=== PATIENT | female | born 1985 | race Caucasian/White ===

== ENCOUNTER 2018-06-19 11:10 | Inpatient (IN) | payer SELFPAY ==
[2018-06-19 12:47] LABS: BHCG - Serum Negative (NEGATIVE); Pregs Control Background? CLEAR/WHITE (CLR/WHITE); Pregs Control Bar Appear? YES (CONTROL BAR)
[2018-06-19] MEDS ORDERED: Morphine 2 MG/ML SYRINGE ONE (13:10)
[2018-06-19] MEDS ORDERED: Magnesium 2 GM/50 ML BAG (IN WATER) ONE (13:10)
[2018-06-19 13:29] LABS: Base Excess-Venous -1.8 mmol/L (0 (+/- 2.5)); Bicarbonate (HCO3v) 20.8 mmol/L (1.0-85.0); CO2 Tension (PvCO2) 28.8 mmHg (41.0-51.0); Calcium, Ionized 1.01 mmol/L (1.12-1.32); Hemoglobin - Calc 13.9 g/dL (12.0-18.0); O2 Tension (PvO2) 104.3 mmHg (35.0-45.0); Potassium 2.8 mmol/L (3.4-4.7); T. Carbon Dioxide 21.6 mmol/L (1.0-85.0); pH (Venous) 7.465 (7.35-7.45); vO2 Saturation-calc 98.4 % (94-98)
[2018-06-19 14:14] LABS: INR-International Normal Ratio 1.7; PTT 35.5 SEC (22.9-36.1)
[2018-06-19 14:17] LABS: HBCM Index 0.05 S/CO (0-0.79); HBSAg Index 0.26 S/CO (0-0.99); Hep A IgM AB Non-Reactive (NonReactive); Hep B Surf Ag Non-Reactive S/CO (NonReactive); Hep C IgG Ab Non-Reactive (NonReactive); Hep C Index 0.06 S/CO (0-0.79); Hepatitis B Core IgM Abs Non-Reactive (NonReactive)
[2018-06-19] MEDS ORDERED: Promethazine HCl 25 MG/ML VIAL IM/IV PRN (14:21)
[2018-06-19] MEDS ORDERED: NS 0.9% w/ 40 MEQ KCL 1,000 ML IV SCH (14:30)
[2018-06-19] MEDS ORDERED: Potassium Chloride 20 MEQ TAB ONE (15:13)
--- NOTE | 2018-06-19 16:03 | HP ---
PRIMARY CARE PROVIDER: Mi Oliver PA-C CHIEF COMPLAINT: Abdominal pain. HISTORY OF PRESENT ILLNESS: Ms. Shaffer is a pleasant 32-year-old lady who was seen at [facility] on 06/19/2018. She reports that 2 days ago she developed pain across her upper abdomen, at times constant, but also at times on and off, it appears that she had more than one type of pain. She describes the pain as s harp, but also cramping like sensation, 10/10 at its worst, no known aggravating or relieving factors . Yesterday morning, she started having nausea and vomiting. She reports vomiting multiple times du ring the day, every time she tried to drink some water. She denies any diarrhea. She denies any josh st pain or shortness of breath. She reports generalized weakness. She came to the emergency room because of ongoing abdominal pain. REVIEW OF SYSTEMS: All other systems reviewed and found to be negative. PAST MEDICAL HISTORY: Hypertension and migraines. PAST SURGICAL HISTORY: Cautery for what appears to be a nose polyp, tubal ligation and sect ion x3. PSYCHIATRIC HISTORY: Bipolar disorder. SOCIAL HISTORY: The patient reports smoking half a pack of cigarettes a day. She also reports drink ing 6 beers every day. FAMILY HISTORY: Heart disease in both her maternal grandparents. ALLERGIES: PENICILLIN. CURRENT MEDICATIONS: None. PHYSICAL EXAMINATION: GENERAL: Ms. Shaffer is awake and alert, not in acute distress. VITAL SIGNS: Blood pressure is 119/85, pulse 100, respiratory rate 18, and oxygen saturation 99% on room air. She is afebrile. EYES: She has scleral icterus. No conjunctival pallor. ENT: Dry mucosal membranes, no oropharyngeal erythema or exudates. NECK: Supple, nontender, trachea is midline. RESPIRATORY: Accessory muscles of breathing are not active. Chest wall movements are symmetric bila terally. LUNGS: Clear to auscultation without wheeze, rhonchi or crepitations. CARDIOVASCULAR: S1 and S2 are heard, tachycardic and regular. Peripheral pulses palpable. No carot id bruit, no pericardial rub. ABDOMEN: Epigastrium is tender. Right upper quadrant is tender as well. I could not assess for Mur phy's sign because of the degree of tenderness in the right upper quadrant. There is no guarding or rigidity. Bowel sounds are heard. NEUROLOGIC: Cranial nerves II-XII intact, deep tendon reflexes are 2+. MUSCULOSKELETAL: Power is 5/5 in all 4 extremities. SKIN: No rashes or subcutaneous nodules. LYMPHATIC: No cervical lymphadenopathy. PSYCHIATRIC: Normal mood, normal affect, patient is oriented to person, place, and time. LABORATORY DATA: Ms. Powers labs and investigations were reviewed. She has leukocytosis with 16,800 white cells, of which 92% are neutrophils, elevated hemoglobin of 17.3, normal platelet count, milton l sodium, decreased potassium of 2.8, normal creatinine, elevated lactic acid level of 5.7, decreased magnesium of 1.4, elevated total bilirubin of 1.9, elevated AST of 10,738, elevated ALT of 1228, mateo vated alkaline phosphatase of 253, elevated lipase of 160 and negative serum test. Acute h epatitis serology is negative. Acetaminophen level is in the normal range at 11. She had CT scan of the abdomen and pelvis, which showed diffuse fatty infiltration of the liver, slightly increased hep atic size, normal splenic size, streaking around the pancreas with slight enlargement of the pancreat ic head, small amount of fluid near the head, suspicious for acute pancreatitis and fluid in nondilat ed loops of small bowel, probably reactive to the above problems and large gallbladder without eviden ce of stones or wall thickening. ASSESSMENT AND PLAN: Ms. Powers is a pleasant 32-year-old lady who was seen at [facility] on 06/19/2018. Her problem list includes: 1. Acute hepatitis: The etiology is unclear, could be related to daily alcohol abuse. She does hav e acetaminophen in her blood and reports taking Midol with acetaminophen because of abdominal cramps. She reports taking multiple doses. We will contact [facility] to see if they have any f urther recommendations. We will continue intravenous fluids. We will recheck LFTs. Gastroenterolog y service is also being consulted. 2. Acute pancreatitis: Continue IV fluids, continue pain medications, recheck lipase level. 3. Tobacco abuse: Patient has been counseled regarding tobacco cessation. We will start her on elisa otine replacement therapy. 4. The patient has been started on empiric antibiotics. I will continue her on fluoroquinolones and metronidazole until the picture is clearer. Many thanks for allowing me to participate in your patient's care. Please feel free to contact me wi th any questions or concerns. LEVEL OF RISK: Moderate. LEVEL OF COMPLEXITY: Moderate.
[2018-06-19] MEDS ORDERED: ACETYLCYSTEINE IVPB ONE ×3 (16:15→22:00)
[2018-06-19] MEDS ORDERED: WATER IVPB ONE ×3 (16:15→22:00)
[2018-06-19] MEDS ORDERED: DEXTROSE 5% IVPB ONE ×3 (16:15→22:00)
[2018-06-19 16:51] VITALS: BMI 20.5
[2018-06-19] MEDS ORDERED: diphenhydrAMINE 25 MG CAP PO PRN (17:02)
[2018-06-19] MEDS ORDERED: diphenhydrAMINE 50 MG/ML VIAL IVP PRN ×2 (17:02)
[2018-06-19] MEDS ORDERED: diphenhydrAMINE 50 MG CAP PO PRN (17:02)
[2018-06-19] MEDS ORDERED: Ondansetron PF 4 MG/2 ML Vial SLOW IVP PRN (17:07)
[2018-06-19 17:52] LABS: Amphetamine Not Detected (NotDetected); Barbiturates Screen Not Detected (NotDetected); Benzodiazepine Screen Detected (NotDetected); Cocaine Metabolite Screen Not Detected (NotDetected); Medtox Control Line Valid? VALID (VALID); Medtox Reader # READER 4; Methadone Not Detected (NotDetected); Methamphetamine Not Detected (NotDetected); Opiate Screen Detected (NotDetected); Oxycodone Screen Not Detected (NotDetected); Phencyclidine (PCP) Not Detected (NotDetected); THC/Cannabinoid Screen Not Detected (NotDetected); Tricyclic Screen Not Detected (NotDetected)
[2018-06-19] MEDS: Morphine 2 MG/ML SYRINGE SLOW IVP PRN (18:23)
[2018-06-19] MEDS ORDERED: Lactated Ringer's 1,000 ML IV SCH (20:15)
[2018-06-19 20:21] LABS: ALT (SGPT) 1013 U/L (8-55); Alkaline Phosphatase 150 U/L (40-150); Anion Gap 15 mmol/L (10-20); BUN (Urea Nitrogen) Less than 4 mg/dL (7.0-18.7); Bilirubin, Total 1.2 mg/dL (0.2-1.2); Calc. Creatinine Clearance 111 mL/min (70-130); Calcium 7.9 mg/dL (7.8-10.44); Carbon Dioxide 22 mmol/L (22-29); Chloride 103 mmol/L (98-107); Estimated GFR-MDRD Greater than 90; Globulin 2.8 g/dL (2.4-3.5); Glucose 106 mg/dL (70-105); Lipase 110 U/L (8-78); Protein, Total 5.8 g/dL (6.0-8.3); Sodium 137 mmol/L (136-145)
[2018-06-19 20:22] LABS: AST (SGOT) Greater than 3500 U/L (5-34)
[2018-06-19 20:24] LABS: Potassium 2.9 mmol/L (3.5-5.1)
[2018-06-19] MEDS: Multivitamins, Adult 10 ML, Folic Acid 1 MG, Thiamine HCl 100 MG in Dextrose 5 %-0.45 %... IV SCH (20:28)
[2018-06-19 20:29] LABS: INR-International Normal Ratio 1.5; Prothrombin Time 18.4 SEC (12.0-14.7)
[2018-06-19 20:33] LABS: Band 7 % (5-11); Hemoglobin 12.2 g/dL (12.0-16.0); Lymphocytes 15 % (21-51); MDiff Complete? YES; Mean Corpuscular HGB CONC 32.9 g/dL (32.0-36.0); Mean Corpuscular Hemoglobin 32.1 pg (27.0-31.0); Mean Corpuscular Volume 97.6 fL (78.0-98.0); Mean Platelet Volume 8.4 fL (7.4-10.4); Monocytes 3 % (0-10); Neutrophil 75 % (42-75); PLT Morphology Comment Appears Decreased; Platelet Count 126 thou/uL (130-400); RBC Distribution Width 12.7 % (11.5-14.5); Red Blood Cell (RBC) Count 3.81 mill/uL (4.20-5.40); White Blood Cell (WBC) Count 7.3 thou/uL (4.8-10.8)
[2018-06-19] MEDS: Nicotine 14 MG PATCH TD SCH (20:38)
[2018-06-19] MEDS: Lactated Ringer's 1,000 ML IV SCH (20:41)
[2018-06-19] MEDS: metroNIDAZOLE 500 MG in Premix Bag 1 BAG IVPB SCH (22:27)
[2018-06-19] MEDS: Potassium Chloride 20 MEQ in Premix Bag 1 BAG IVPB SCH (22:28)
--- NOTE | 2018-06-19 22:49 | CON ---
DATE OF CONSULTATION: 06/19/2018 CHIEF COMPLAINT: Abdominal pain. HISTORY OF PRESENT ILLNESS: Ms. Shaffer is a 32-year-old woman who has been drinking heavily for years , who developed epigastric severe aching pain that wrapped around her entire upper abdomen and then a round to her back at the same level. She had this pain throughout the day on Monday and had very lit tle to eat or drink. The pain worsened yesterday through the day and then finally this morning she c octaviano onto the emergency room for further care. She has had no diarrhea or blood in the stool. Her la st bowel movement was few days ago. She drinks 6-12 beers per day. She has been taking acetaminophe n average of 3 per day for headaches; however, with this increase in her pain, she was taking acetami nophen in the form of Tylenol and acetaminophen with 3 tablets every 3-4 hours for the last cou ple of days. She has had no hematemesis. Her pain has been constant since Monday morning, but gradu ally worsening throughout that time. Currently, her primary complaint is dry mouth. PAST MEDICAL HISTORY: She reports a remote diagnosis of bipolar disorder; however, this has not been treated for years. Alcoholism. PAST SURGICAL HISTORY: x3. FAMILY HISTORY: She reports liver problems in her mother and maternal grandfather, maternal grandmot her. One of them at least had cirrhosis, her mother drinks heavily. HABITS: She drinks 6-12 beers per day at least. She smokes half a pack to a pack a day. She smoked marijuana in high school, but no recent drug use. ALLERGIES: PENICILLIN. MEDICATIONS AT HOME: Tylenol as stated above, otherwise no other medications. SOCIAL HISTORY: She is . She has 2 children that lived with her age 9 and 10. She has not s poken with her 14-year-old for several years. REVIEW OF SYSTEMS: Negative x10 systems reviewed except as stated in the history of present illness. PHYSICAL EXAMINATION: VITAL SIGNS: Temperature 98.0, pulse 107, blood pressure 131/65. GENERAL: She is in no acute distress. She is alert and oriented x3. HEENT: Eyes have slight scleral icterus. Oropharynx is clear without lesions. No cervical or supra clavicular lymphadenopathy. Mucous membranes are dry. LUNGS: She has bilateral expiratory wheezes. HEART: Tachycardic, S1, S2, without murmur. ABDOMEN: Soft, tender in the upper abdomen diffusely. Bowel sounds are present. EXTREMITIES: No lower extremity edema. LABORATORY DATA: White blood cell count 16.8, hemoglobin 17.3, platelets 271. INR of 1.7, creatinin e 0.98. Lactic acid 5.7, bilirubin 1.9, AST 10,738, ALT 1228, alkaline phosphatase 253, magnesium 1. 4, ionized calcium 1.01, albumin 4.3. Acetaminophen level was 11, 12 hours after her last dose of ac etaminophen it was only 3 tablets at that time, however. She did not have an alcohol level this admi ssion; however, back in December her alcohol level was 254 and in 10/2017, she had an alcohol level of 296 mg per deciliter. IMAGING: She had a CT scan performed this morning in [place]. The CT showed changes of pancreatiti s. This had streaking around the pancreas with enlargement of the pancreatic head and some fluid lg r the pancreatic head. She also was noted to have diffuse fatty infiltration of the liver with a nor mal spleen size and the gallbladder was enlarged with no stones or thickening noted by CT. Her lipas e was 160 this morning with upper limit normal of 78. IMPRESSION: 1. Severe acute hepatitis. I suspect this is secondary to Tylenol toxicity in the setting of chroni c alcohol abuse. She has been taking Tylenol every 3-4 hours of the last couple of days, but normall y takes three Tylenol per day. She drinks heavily in addition and low levels of Tylenol can cause to xicity in the setting of chronic alcoholic liver disease. Her Tylenol level was 11, 12 hours after i ngestion. Other possibilities to cause an elevated AST in the 10,000 range would be, acute viral hep atitis panel which she tested negative for. Also, ischemic hepatopathy from thrombosis of the portal or hepatic arteries in the setting of acute pancreatitis. Also, portal or hepatic vein thrombosis s hould be considered. I reviewed the CT scan with Radiology and there is no hepatic vein or hepatic a rtery or portal vein thrombosis. Only other thing to consider would be herpes hepatitis; however, th is would be unlikely without any other systemic signs. Check HSV IgG for complete . She does n ot have acute liver failure at this point given her normal mental status. We will need to follow the trend of her INR and other liver function tests closely. 2. Acute pancreatitis. Her symptoms are very typical of acute pancreatitis. CT scan findings are c onsistent. Her lipase was only 2 times upper limit of normal; however, this might have been trending down as her pain started 2 days before. She was very hemoconcentrated on presentation. She will ne ed to receive aggressive IV hydration. RECOMMENDATIONS: 1. Recheck liver tests, INR, lipase, and CBC now. 2. IV fluids. 3. Monitor mental status closely. 4. If her INR increases significantly, she will need to be transferred to a liver transplant center. 5. Acetylcysteine IV protocol for Tylenol toxicity.
[2018-06-20] MEDS: Potassium Chloride 20 MEQ in Premix Bag 1 BAG IVPB SCH (01:13)
[2018-06-20] MEDS: Lactated Ringer's 1,000 ML IV SCH ×3 (05:16→21:37)
[2018-06-20] MEDS: metroNIDAZOLE 500 MG in Premix Bag 1 BAG IVPB SCH ×2 (05:16→13:47)
[2018-06-20] MEDS: Morphine 2 MG/ML SYRINGE SLOW IVP PRN ×3 (05:21→19:28)
[2018-06-20 05:37] LABS: #Basophils 0.1 thou/uL (0.0-0.2); #Eosinphils 0.1 thou/uL (0.0-0.7); #Lymphocytes 2.1 thou/uL (1.20-3.40); #Monocytes 0.1 thou/uL (0.11-0.59); #Neutrophils 6.5 thou/uL (1.40-6.50); %Basophils 0.8 % (0.0-1.0); %Eosinophils 1.5 % (0.0-10.0); %Lymphocytes 23.8 % (21.0-51.0); %Monocytes 1.1 % (0.0-10.0); %Neutrophils 72.8 % (42.0-75.0); Hemoglobin 12.1 g/dL (12.0-16.0); Mean Corpuscular HGB CONC 31.7 g/dL (32.0-36.0); Mean Corpuscular Hemoglobin 31.5 pg (27.0-31.0); Mean Corpuscular Volume 99.3 fL (78.0-98.0); Mean Platelet Volume 9.4 fL (7.4-10.4); Platelet Count 137 thou/uL (130-400); RBC Distribution Width 12.7 % (11.5-14.5); Red Blood Cell (RBC) Count 3.83 mill/uL (4.20-5.40); White Blood Cell (WBC) Count 8.9 thou/uL (4.8-10.8)
[2018-06-20 05:42] LABS: ALT (SGPT) 813 U/L (8-55); Albumin 2.9 g/dL (3.5-5.0); Alkaline Phosphatase 144 U/L (40-150); Anion Gap 11 mmol/L (10-20); BUN (Urea Nitrogen) Less than 4 mg/dL (7.0-18.7); Bilirubin, Total 1.2 mg/dL (0.2-1.2); Calc. Creatinine Clearance 111 mL/min (70-130); Calcium 8.3 mg/dL (7.8-10.44); Carbon Dioxide 25 mmol/L (22-29); Chloride 105 mmol/L (98-107); Estimated GFR-MDRD Greater than 90; Globulin 2.8 g/dL (2.4-3.5); Glucose 72 mg/dL (70-105); Lipase 86 U/L (8-78); Potassium 3.6 mmol/L (3.5-5.1); Protein, Total 5.7 g/dL (6.0-8.3); Sodium 137 mmol/L (136-145)
[2018-06-20 05:46] LABS: AST (SGOT) Greater than 3500 U/L (5-34)
[2018-06-20] MEDS: Enoxaparin Sodium 40 MG/0.4 ML SYRINGE SC SCH (07:46)
[2018-06-20 12:12] LABS: INR-International Normal Ratio 1.3; Prothrombin Time 16.4 SEC (12.0-14.7)
--- NOTE | 2018-06-20 13:33 | PRG ---
DATE OF SERVICE: 06/20/2018. SUBJECTIVE: Ms. Shaffer continues to have epigastric cramping abdominal pain; however, this is much be tter than at the time of admission. She has had no nausea today. OBJECTIVE: VITAL SIGNS: Temperature 98.6, pulse 80, blood pressure 106/72. GENERAL: She is in no acute distress, alert and oriented x3. HEENT: Eyes have no scleral icterus. Oropharynx clear, without lesions. LUNGS: Clear to auscultation bilaterally. HEART: Regular rate and rhythm without murmur. ABDOMEN: Soft. She is tender in the epigastric region without guarding. Bowel sounds are present. EXTREMITIES: No lower extremity edema. LABORATORY DATA: White blood cell count 8.9, hemoglobin 12.1, platelets 137. INR is down to 1.3 fro m 1.7 yesterday. Creatinine 0.63. Of note, her hemoglobin has come down from 17 and dropped down to 12 with rehydration. Her AST is greater than 3500, ALT 813 down from 1000. Alkaline phosphatase 14 4, albumin 2.9, lipase 86. IMPRESSION: 1. Acute hepatitis, likely secondary to Tylenol toxicity due to excessive chronic use in the setting of chronic alcohol use. Her INR is coming down. Her mental status has remained stable. She has no acute liver failure at this point. Given that her INR is improving. She should continue to improve from this acute insult. 2. Alcohol abuse. 3. Acute pancreatitis. This is likely alcohol-induced pancreatitis. RECOMMENDATIONS: 1. We will try to advance to clear liquids as she tolerates today. 2. Continue supportive care and IV fluids and follow trend of her liver tests. 3. Alcohol cessation and rehab.
[2018-06-20] MEDS: Multivitamins, Adult 10 ML, Folic Acid 1 MG, Thiamine HCl 100 MG in Dextrose 5 %-0.45 %... IV SCH (15:41)
--- NOTE | 2018-06-20 15:53 | PDOC.PN ---
- Subjective Encounter Start Date: 06/20/18 Encounter Start Time: 15:40 Subjective: f/u for acute alcohol/Acetominophen induced hepatitis and pancreatitis -: improved with supportive care. States she is hungry and no N/V. -: Overall feeling better. - Objective MAR Reviewed: Yes Vital Signs & Weight: Vital Signs (12 hours) Temp Pulse Resp BP BP Pulse Ox 06/20/18 11:43 98.6 F 80 14 106/72 98 06/20/18 07:53 98.7 F 81 16 107/68 96 06/20/18 07:46 96 06/20/18 03:58 98.4 F 98 18 124/82 97 Weight Admit Weight 119 lb 15.962 oz Weight 119 lb 15.962 oz I&O: 06/19/18 06/20/18 06/21/18 06:59 06:59 06:59 Intake Total 1900 Output Total 750 Balance 1150 Result Diagrams: 06/20/18 04:10 06/20/18 04:10 Additional Labs: Laboratory Tests 06/19/18 06/19/18 06/19/18 08:25 12:24 12:24 INR 1.7 AST 34875 H ALT 1228 H Lipase 160 H Hepatitis A IgM Ab Non-Reactive Hep Bs Antigen Non-Reactive Hep B Core IgM Ab Non-Reactive Hepatitis C Antibody Non-Reactive 06/19/18 06/19/18 06/20/18 19:49 19:49 04:10 INR 1.5 AST Greater than 3500 H Greater than 3500 H ALT 1013 H 813 H Lipase 110 H 86 H Hepatitis A IgM Ab Hep Bs Antigen Hep B Core IgM Ab Hepatitis C Antibody 06/20/18 11:43 INR 1.3 AST ALT Lipase Hepatitis A IgM Ab Hep Bs Antigen Hep B Core IgM Ab Hepatitis C Antibody Phys Exam - Physical Examination Constitutional: NAD HEENT: PERRLA, sclera anicteric, oral pharynx no lesions Neck: no nodes, no JVD, supple, full ROM Respiratory: no wheezing, no rales, no rhonchi, clear to auscultation bilateral S1, S2 Cardiovascular: RRR, no significant murmur, no rub, gallop Gastrointestinal: soft, non-tender, no distention, positive bowel sounds Musculoskeletal: no edema, pulses present Neurological: normal sensation, moves all 4 limbs Psychiatric: normal affect, A&O x 3 Skin: no rash, normal turgor, cap refill <2 seconds Dx/Plan (1) Alcoholic hepatitis Code(s): K70.10 - ALCOHOLIC HEPATITIS WITHOUT ASCITES Status: Acute Comment : Improved with supportive mgmt, ? 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
[2018-06-20] MEDS: Nicotine 14 MG PATCH TD SCH (19:47)
[2018-06-21 04:45] LABS: #Basophils 0.1 thou/uL (0.0-0.2); #Eosinphils 0.2 thou/uL (0.0-0.7); #Lymphocytes 1.8 thou/uL (1.20-3.40); #Monocytes 0.2 thou/uL (0.11-0.59); #Neutrophils 2.9 thou/uL (1.40-6.50); %Eosinophils 3.3 % (0.0-10.0); %Lymphocytes 34.2 % (21.0-51.0); %Monocytes 4.6 % (0.0-10.0); %Neutrophils 56.9 % (42.0-75.0); Hemoglobin 10.3 g/dL (12.0-16.0); Mean Corpuscular HGB CONC 32.4 g/dL (32.0-36.0); Mean Corpuscular Hemoglobin 32.4 pg (27.0-31.0); Mean Corpuscular Volume 99.9 fL (78.0-98.0); Mean Platelet Volume 7.8 fL (7.4-10.4); Platelet Count 132 thou/uL (130-400); RBC Distribution Width 12.8 % (11.5-14.5); Red Blood Cell (RBC) Count 3.19 mill/uL (4.20-5.40); White Blood Cell (WBC) Count 5.1 thou/uL (4.8-10.8)
[2018-06-21 05:03] LABS: ALT (SGPT) 444 U/L (8-55); AST (SGOT) 682 U/L (5-34); Albumin 2.7 g/dL (3.5-5.0); Alkaline Phosphatase 139 U/L (40-150); Anion Gap 10 mmol/L (10-20); BUN (Urea Nitrogen) Less than 4 mg/dL (7.0-18.7); Bilirubin, Total 1.1 mg/dL (0.2-1.2); Calc. Creatinine Clearance 123 mL/min (70-130); Calcium 8.2 mg/dL (7.8-10.44); Carbon Dioxide 23 mmol/L (22-29); Chloride 109 mmol/L (98-107); Estimated GFR-MDRD Greater than 90; Globulin 2.4 g/dL (2.4-3.5); Glucose 87 mg/dL (70-105); Lipase 54 U/L (8-78); Protein, Total 5.1 g/dL (6.0-8.3); Sodium 139 mmol/L (136-145)
[2018-06-21 05:06] LABS: Potassium 2.8 mmol/L (3.5-5.1)
[2018-06-21] MEDS ORDERED: Magnesium 2 GM/50 ML 2 GM in Premix Bag 1 BAG IVPB PRN (05:36)
[2018-06-21] MEDS: Lactated Ringer's 1,000 ML IV SCH ×2 (05:51→13:04)
[2018-06-21] MEDS: Potassium Chloride 20 MEQ in Premix Bag 1 BAG IVPB SCH ×3 (05:52→16:53)
[2018-06-21] MEDS: Morphine 2 MG/ML SYRINGE SLOW IVP PRN ×2 (06:18→12:59)
[2018-06-21] MEDS: Enoxaparin Sodium 40 MG/0.4 ML SYRINGE SC SCH (08:06)
--- NOTE | 2018-06-21 16:46 | PDOC.PN ---
- Subjective Encounter Start Date: 06/21/18 Encounter Start Time: 16:40 Subjective: f/u for ETOH induced hepatitis/pancreatitis with improving LFT's -: and normalizing lipase. Feels much better today. Very hungry. -: Tolerated liquids. - Objective MAR Reviewed: Yes Vital Signs & Weight: Vital Signs (12 hours) Temp Pulse Resp BP Pulse Ox 06/21/18 08:09 98.4 F 77 14 122/81 98 06/21/18 08:00 98 Weight Admit Weight 119 lb 15.962 oz Weight 119 lb 15.962 oz I&O: 06/20/18 06/21/18 06/22/18 06:59 06:59 06:59 Intake Total 1900 360 Output Total 750 Balance 1150 360 Result Diagrams: 06/21/18 04:16 06/22/18 03:36 Additional Labs: Laboratory Tests 06/19/18 06/19/18 06/19/18 08:25 12:24 12:24 INR 1.7 AST 80265 H ALT 1228 H Lipase 160 H Hepatitis A IgM Ab Non-Reactive Hep Bs Antigen Non-Reactive Hep B Core IgM Ab Non-Reactive Hepatitis C Antibody Non-Reactive 06/19/18 06/19/18 06/20/18 19:49 19:49 04:10 INR 1.5 AST Greater than 3500 H Greater than 3500 H ALT 1013 H 813 H Lipase 110 H 86 H Hepatitis A IgM Ab Hep Bs Antigen Hep B Core IgM Ab Hepatitis C Antibody 06/20/18 11:43 INR 1.3 AST ALT Lipase Hepatitis A IgM Ab Hep Bs Antigen Hep B Core IgM Ab Hepatitis C Antibody Phys Exam - Physical Examination Constitutional: NAD smiling, alert HEENT: PERRLA, sclera anicteric, oral pharynx no lesions Neck: no nodes, no JVD, supple, full ROM Respiratory: no wheezing, no rales, no rhonchi, clear to auscultation bilateral S1, S2 Cardiovascular: RRR, no significant murmur, no rub, gallop Gastrointestinal: soft, non-tender, no distention, positive bowel sounds Musculoskeletal: no edema, pulses present Neurological: normal sensation, moves all 4 limbs Psychiatric: normal affect, A&O x 3 Skin: no rash, normal turgor, cap refill <2 seconds Dx/Plan (1) Alcoholic hepatitis Code(s): K70.10 - ALCOHOLIC HEPATITIS WITHOUT ASCITES Status: Acute Comment : Improved with supportive mgmt, ? 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
[2018-06-21] MEDS: Multivitamins, Adult 10 ML, Folic Acid 1 MG, Thiamine HCl 100 MG in Dextrose 5 %-0.45 %... IV SCH (16:54)
[2018-06-21] MEDS ORDERED: Potassium Chloride 20 MEQ TAB PO SCH (17:00)
[2018-06-21] MEDS: Nicotine 14 MG PATCH TD SCH (20:07)
--- NOTE | 2018-06-21 21:24 | PRG ---
DATE OF SERVICE: 06/21/2018 SUBJECTIVE: Ms. Shaffer feels much better today. Her abdominal pain is resolved, and she is toleratin g a solid diet. OBJECTIVE: VITAL SIGNS: Temperature 98.5, pulse 82, blood pressure 118/75. GENERAL: She is in no acute distress, she is alert and oriented x3. LUNGS: Clear to auscultation bilaterally. HEART: Regular rate and rhythm without murmur. ABDOMEN: Soft, nontender, nondistended. Bowel sounds are present. EXTREMITIES: No lower extremity edema. LABORATORY DATA: White blood cell count 5.1, hemoglobin 10.3, platelets 132. INR yesterday was 1.3, which was trending down. AST today 682, ALT 444, alkaline phosphatase 139, bilirubin 1.1. IMPRESSION: 1. Drug-induced liver injury secondary to excessive Tylenol use in the setting of chronic alcohol ab use. 2. Alcoholic hepatitis will not cause the transaminases to spike to the thousands. She likely does have some chronic underlying liver disease given the low platelets. However, we really would not be able to determine this until she is further out from this acute injury. 3. Alcohol abuse. 4. Acute pancreatitis, likely secondary to alcohol-induced pancreatitis, clinically resolved. RECOMMENDATIONS: 1. Alcohol cessation and rehabilitation. 2. Anticipate discharge home tomorrow.
[2018-06-22 04:34] LABS: ALT (SGPT) 311 U/L (8-55); AST (SGOT) 215 U/L (5-34); Albumin 2.9 g/dL (3.5-5.0); Alkaline Phosphatase 153 U/L (40-150); Anion Gap 11 mmol/L (10-20); BUN (Urea Nitrogen) Less than 4 mg/dL (7.0-18.7); Bilirubin, Total 0.7 mg/dL (0.2-1.2); Calc. Creatinine Clearance 117 mL/min (70-130); Carbon Dioxide 23 mmol/L (22-29); Chloride 108 mmol/L (98-107); Estimated GFR-MDRD Greater than 90; Globulin 2.8 g/dL (2.4-3.5); Glucose 105 mg/dL (70-105); Potassium 3.4 mmol/L (3.5-5.1); Protein, Total 5.7 g/dL (6.0-8.3); Sodium 139 mmol/L (136-145)
[2018-06-22] MEDS ORDERED: Multivit, Therapeutic 1 TAB PO SCH (09:00)
[2018-06-22] MEDS ORDERED: Folic Acid 1 MG TAB PO SCH (09:00)
[2018-06-22 11:45] VITALS: BP 128/85; TEMP 98.2
--- NOTE | 2018-06-22 11:54 | DIS ---
DATE OF ADMISSION: 06/19/2018 DATE OF DISCHARGE: 06/22/2018 DISCHARGE DIAGNOSES: 1. Acute hepatitis secondary to alcohol and acetaminophen, improved. 2. Alcohol abuse. 3. Alcohol-induced pancreatitis, resolving. 4. Hypokalemia, resolved. CONSULTATIONS: Dr. Valentin with GI Service. PERTINENT LABORATORY DATA AND X-RAY FINDINGS: Potassium ranged between 2.8-3.6, magnesium level rang ed between 1.4-2.0, AST ranged between 215-10,738, ALT ranged between 311-1228. Albumin ranged betwe en 2.7-3.0, lipase ranged between 54-110. Serum beta hCG negative on 06/19/2018. CBC showed hemoglo bin ranging between 10.3-12.2, MCV 100. INR ranged between 1.3-1.7. Urine drug screen dated 018, positive for opiates and benzodiazepines. Beta hydroxybutyrate level 0.11. Acetaminophen level 11. Hepatitis A, B, and C panel negative, 06/19/2018. CT of the abdomen and pelvis dated 8 showed diffuse fatty infiltration of the liver. Peripancreatic fluid and streaking consistent with acute pancreatitis. Portable chest x-ray dated 06/19/2018 showed no acute cardiopulmonary process. HOSPITAL COURSE: The patient was admitted to the medical floor after initially presenting with abdom inal pain. The patient underwent extensive evaluation including CT of the abdomen and pelvis showing diffuse fatty infiltration of the liver. The patient was noted with marked elevation of LFTs with i nitial AST over 10,000. The patient was initially managed with acetylcysteine per protocol, even in the context of normal acetaminophen level. The patient's history was significant for increased Tylen ol use in addition to alcohol abuse. The patient continue general supportive management including IV fluids and initially was n.p.o. due to the pancreatitis. Serial monitoring of LFTs and lipase showe d overall improving values and stabilization. The patient was given education and resources regardin g alcohol cessation programs. The patient overall transitioned to regular oral intake, tolerating wi thout difficulty. The patient was followed by the GI service during the hospital course without spec [facility] recommendations for an acute intervention. The patient overall remained clinically stable with vital signs showing no evidence of fever. The patient tolerated regular oral intake, ambulated witho ut assistance or difficulty and was voiding appropriately. I have examined the patient at time of dexter montiel and discussed followup instructions. The patient verbalized understanding and agreement and ready for discharge on 06/22/2018. DISCHARGE MEDICATIONS: None. FOLLOWUP: The patient may follow up with Mi Oliver PA-C within 7 days of discharge. CONDITION ON DISCHARGE: Stable. ACTIVITY: Ad manolo. DIET: Regular. CODE STATUS: FULL. DISPOSITION: Home, 06/22/2018.
== END 2018-06-22 13:13 | disposition home or self-care (01) | DRG 432 ==
LOC: ERS 11:10 → T4-B 13:56
PROVIDERS: ADMIT Internal Medicine; ATTEND Internal Medicine
DX: K70.10 Alcoholic hepatitis without ascites (principal); K85.20 Alcohol induced acute pancreatitis without necrosis or infection; I10 Essential (primary) hypertension; G43.909 Migraine, unspecified, not intractable, without status migrainosus; F31.9 Bipolar disorder, unspecified; F10.10 Alcohol abuse, uncomplicated; F17.210 Nicotine dependence, cigarettes, uncomplicated; E87.6 Hypokalemia; T39.1X5A Adverse effect of 4-Aminophenol derivatives, initial encounter; Z88.0 Allergy status to penicillin; Z82.49 Family history of ischemic heart disease and other diseases of the circulatory system
CPT/HCPCS: 36415; 80053; 80074; 80306; 80307; 82010; 82150; 82330; 82803; 83690; 83735; 83930; 84703; 85025; 85610; 85730; 90471; 90686; 90732; 96361; 96365; 96366; 96375; G0008; G0009; J0132; J0744; J1200; J1650; J2270; J2405; J2550; J3411; J3480; J7042; J7070

== ENCOUNTER 2020-01-27 18:54 | Inpatient (IN) | payer OTHER, SELFPAY ==
[2020-01-27] MEDS ORDERED: Ondansetron PF 4 MG/2 ML Vial ONE (20:02)
[2020-01-27] MEDS ORDERED: Morphine 4 MG/ML VIAL ONE (20:49)
--- NOTE | 2020-01-27 20:59 | ULT ---
GALLBLADDER ULTRASOUND: History: Right upper quadrant pain, nausea, vomiting, loss of appetite. FINDINGS: Correlation is made to the CT scan from earlier today. The liver demonstrates increased echogenicity consistent with fatty infiltration but no focal mass or intrahepatic biliary ductal dilatation. The common bile duct measures 5 mm in diameter. The gallblad aurelio is distended measuring about 11.6 cm in length with no gallstones, gallbladder wall thickening or pericholecystic fluid. There is minimal sludge in the gallbladder. The right kidney is normal. There is prominence of the pancreatic duct measuring about 3 mm. The pancreas is otherwise normal. No free fluid is seen in the Walls's pouch. IMPRESSION: 1. Distended gallbladder without gallstones. 2. Fatty liver. POS: OFF
[2020-01-27 22:43] LABS: Lactic Acid 1.4 mmol/L (0.5-2.2)
[2020-01-27] MEDS ORDERED: Potassium Chloride 20 MEQ/100 ML PREMIX BAG IVPB SCH (22:45)
[2020-01-27] MEDS ORDERED: Potassium Chloride 20 MEQ TAB ONE (22:57)
--- NOTE | 2020-01-27 23:18 | PDOC.EVN ---
Event Note - Event Note Event Note: [id number]
[2020-01-28] MEDS: Morphine 2 MG/ML SYRINGE SLOW IVP PRN ×5 (00:45→21:47)
[2020-01-28 01:08] VITALS: BMI 23.9
[2020-01-28] MEDS: Ondansetron PF 4 MG/2 ML Vial IVP PRN ×3 (02:44→17:43)
--- NOTE | 2020-01-28 03:06 | HP ---
CHIEF COMPLAINT: Abdominal pain, nausea and vomiting. HISTORY OF PRESENT ILLNESS: Ms. Shaffer is a 34-year-old female with a past medical history of alcoholic pancreatitis, migraines, presented to [facility] with abdominal pain, nausea and vomiting that has been going on for a few weeks, got worse the last 2 days. The patient is unable to keep anything in her stomach. Her appetite has been poor. Also, she had diarrhea for the last few days. Workup in the emergency room, patient appeared dehydrated with a sodium of 126 and potassium of 3.0. Imaging studies were suspicious for gallbladder pathology, requested transferring the patient to medical facility for further management. Right upper quadrant ultrasound was done which was negative for cholelithiasis or cholecystitis. The patient's lactic acid was mildly elevated. Started on IV antibiotics, IV fluids. The patient is being admitted to hospital for further management. PAST MEDICAL HISTORY: 1. Alcoholic pancreatitis. 2. Migraines. PAST SURGICAL HISTORY: 1. section. 2. Tubal ligation. 3. Cauterization of nose. PAST PSYCHIATRIC HISTORY: Bipolar disorder. SOCIAL HISTORY: Formerly, history of alcohol abuse. Denies current drug use. She smokes cigarettes. FAMILY HISTORY: Reviewed and noncontributory. HOME MEDICATIONS: Please see home medication reconciliation form for updated medication. ALLERGIES: ALLERGIES TO PENICILLINS. REVIEW OF SYSTEMS: Review of 14 systems negative except for what is mentioned in history of present illness. PHYSICAL EXAMINATION: GENERAL: The patient is awake, alert, in moderate distress. VITAL SIGNS: Blood pressure 144/96, respiratory rate is 18, temperature is 98.4, oxygen saturation 96% on room air. HEAD AND NECK: Normocephalic, atraumatic. Neck is supple. No JVD. CHEST: Fair bilateral air entry. HEART: S1, S2. Regular. ABDOMEN: Soft with epigastric and right upper quadrant tenderness. Bowel sounds present. NEUROLOGIC: Awake, alert, oriented x3. PSYCH: Normal mood. EXTREMITIES: No clubbing or cyanosis. GENITOURINARY: No suprapubic tenderness. No flank tenderness. LABORATORY DATA: Sodium is 127, potassium is 3, BUN is 5, creatinine 0.7. AST is 225, ALT 104, alkaline phosphatase 155, total bilirubin is 1, lipase is 78. IMAGING STUDIES: As mentioned above in the history of present illness. ASSESSMENT: 1. Acute abdominal pain. 2. Nausea and vomiting. 3. Lactic acidosis. 4. History of alcohol abuse. 5. Transaminitis. PLAN: 1. Admit. 2. Keep n.p.o. 3. IV fluids. 4. Symptomatic management. 5. IV antibiotics were given in the ED, no obvious source for infection at this point, reassess in a.m. 6. Replace electrolytes. 7. Reconcile home medications. 8. DVT prophylaxis as appropriate. 9. Expected length of stay, 1 midnight. Job ID: [id number]
[2020-01-28 05:36] LABS: #Basophils 0.1 thou/uL (0.0-0.2); #Eosinphils 0.1 thou/uL (0.0-0.7); #Lymphocytes 1.9 thou/uL (1.20-3.40); #Monocytes 0.4 thou/uL (0.11-0.59); #Neutrophils 6.8 thou/uL (1.40-6.50); %Basophils 0.6 % (0.0-1.0); %Eosinophils 0.9 % (0.0-10.0); %Lymphocytes 20.3 % (21.0-51.0); %Monocytes 4.4 % (0.0-10.0); %Neutrophils 73.8 % (42.0-75.0); Hemoglobin 11.8 g/dL (12.0-16.0); Mean Corpuscular HGB CONC 36.2 g/dL (32.0-36.0); Mean Corpuscular Hemoglobin 34.1 pg (27.0-31.0); Mean Platelet Volume 8.5 fL (7.4-10.4); Platelet Count 137 thou/uL (130-400); RBC Distribution Width 12.1 % (11.5-14.5); Red Blood Cell (RBC) Count 3.47 mill/uL (4.20-5.40); White Blood Cell (WBC) Count 9.3 thou/uL (4.8-10.8)
[2020-01-28 05:54] LABS: Albumin 2.9 g/dL (3.5-5.0); Alkaline Phosphatase 126 U/L (40-110); Anion Gap 15 mmol/L (10-20); BUN (Urea Nitrogen) Less than 4 mg/dL (7.0-18.7); Bilirubin, Total 0.8 mg/dL (0.2-1.2); Calc. Creatinine Clearance 117 mL/min (70-130); Calcium 7.4 mg/dL (7.8-10.44); Carbon Dioxide 14 mmol/L (22-29); Chloride 106 mmol/L (98-107); Estimated GFR-MDRD Greater than 90; Globulin 4.1 g/dL (2.4-3.5); Glucose 95 mg/dL (70-105); Potassium 3.4 mmol/L (3.5-5.1); Sodium 132 mmol/L (136-145)
[2020-01-28 06:07] LABS: ALT (SGPT) 53 U/L (8-55)
[2020-01-28 06:58] LABS: AST (SGOT) 86 U/L (5-34)
[2020-01-28] MEDS: Sodium Chloride 0.9% 1,000 ML IV SCH ×2 (08:07)
[2020-01-28] MEDS ORDERED: Famotidine/PF 20 mg/2ml Vial SLOW IVP SCH (09:00)
[2020-01-28] MEDS ORDERED: D5 0.9% NS w/ 20 mEq KCl 1,000 ML IV SCH (09:45)
[2020-01-28 10:08] LABS: Magnesium 1.6 mg/dL (1.6-2.6)
[2020-01-28 10:13] LABS: Phosphorus 1.1 mg/dL (2.3-4.7)
[2020-01-28] MEDS ORDERED: Potassium Phosphate 30 MMOL, Admixture Fee 1 EACH in Sodium Chloride 0.9% 250 ML 250 ML IVPB SCH (10:30)
[2020-01-28] MEDS ORDERED: Magnesium Sulfate 4 GM, Admixture Fee 1 EACH in Sodium Chloride 0.9% 250 ML 250 ML IVPB SCH (10:30)
[2020-01-28] MEDS ORDERED: Pantoprazole 40 MG VIAL IVP SCH (12:00)
[2020-01-28] MEDS: K-Phos Neutral 250 MG TAB PO SCH ×2 (12:05→17:45)
[2020-01-28 14:02] LABS: SARS-CoV-2 MS2 Positive; SARS-CoV-2 N Gene Negative; SARS-CoV-2 S Gene Negative; SARS-CoV-2 orf1ab Negative
--- NOTE | 2020-01-28 17:37 | PRG ---
DATE OF SERVICE: 01/28/2020 SUBJECTIVE: A 34-year-old female with alcoholic pancreatitis in the past, presented to the emergency room with abdominal discomfort. She was found to have abnormal LFTs with AST of 225, ALT of 104, and alkaline phosphatase of 155. Total bilirubin was normal. Right upper quadrant ultrasound was obtained that showed distended gallbladder without gallstones. She continues to have abdominal discomfort. She also has nausea and is unable to tolerate p.o. She had several episodes of diarrhea that resolved 3 to 4 days prior to admission. MEDICATIONS: Current medications were reviewed. OBJECTIVE: VITAL SIGNS: Temperature 98 with pulse rate of 96, respirations 20, blood pressure 127/84, O2 saturation 97% on room air. GENERAL: A 34-year-old female in mild distress due to abdominal discomfort. HEENT: Head, atraumatic and normocephalic. Dry mucous membranes. No oral lesion. NECK: Supple. No JVD. LUNGS: Clear to auscultation bilaterally. No wheezing, rales, or rhonchi. HEART: S1 and S2 present. Regular rate and rhythm. No rubs or gallops. ABDOMEN: Soft with epigastric tenderness. No rebound or guarding. No costovertebral angle tenderness. EXTREMITIES: No edema or calf tenderness. LABORATORY FINDINGS: CBC showed WBC 9.3 with hemoglobin 11.8, hematocrit 32.6, platelet 137. PT/INR in normal range. Sodium on admission was 127 with potassium 3.0, bicarbonate of 10. Repeat labs showed sodium 132, potassium 3.4, bicarbonate of 14, phosphorus 1.1, magnesium 1.6. Lactic acid on admission 2.4. COVID-19, negative. Blood cultures, negative. Urine culture showed gram-negative kaylah, 25,000 to 50,[address] scan of the abdomen and pelvis showed mild hepatomegaly with diffuse fatty infiltration and large gallbladder. There was no evidence of pancreatitis. Chest x-ray by my review was negative for infiltrate. Telemetry monitoring by my review showed sinus rhythm. IMPRESSION: 1. Intractable nausea and vomiting with abdominal discomfort. 2. Dehydration with metabolic acidosis. 3. Lactic acidosis. 4. Abnormal LFTs. 5. Distended gallbladder without gallstones. 6. Multiple electrolyte abnormalities including hyponatremia, hypokalemia, and hypophosphatemia. 7. History of alcohol abuse. 8. Ongoing tobacco abuse. 9. History of cannabis abuse. 10. Penicillin allergy. PLAN: The patient will be transferred to medical floor. We will replace potassium, phosphorus, and magnesium. We will start her on IV PPIs. We will consult Cardiology. We will recheck labs in a.m. The patient understands the above plan of care. Job ID: [id number]
[2020-01-28] MEDS: Pantoprazole 40 MG VIAL IVP SCH (20:20)
--- NOTE | 2020-01-28 20:38 | CON ---
DATE OF CONSULTATION: 01/28/2020 CHIEF COMPLAINT: Abdominal pain. HISTORY OF PRESENT ILLNESS: Ms. Shaffer is a 34-year-old woman who had flare of epigastric abdominal pain a couple of months ago, now lasted for at least several days and then improved. She had had a couple of beers prior to that, but states she has had no alcohol since then. She has had onset now several days ago of diarrhea that went on for a couple of days and then epigastric abdominal pain that is severe and cramping to sharp type and radiates to her back and up toward her chest. She has had nausea and vomiting with that. Her last episode of vomiting was this morning. She has had no further bowel movements for the last couple of days now. She did have one black diarrheal stool but then turned to clear yellow liquids stool several days ago. She has had no fever associated with this. She went to the emergency room, and had a CT scan of the abdomen and pelvis, which was unremarkable except for fatty liver. She had an ultrasound of the gallbladder that showed a distended gallbladder but no gallstones. She has had no hematemesis. No stool output for the last couple of days. I did see her back in May 2018, which was the last time she was in the hospital. At that time, she had acute Tylenol toxicity on top of chronic alcohol use with her transaminases up in the 1000. GI was consulted now here due to persistent epigastric pain and elevated liver tests. PAST MEDICAL HISTORY: 1. Alcoholic pancreatitis and alcoholic hepatitis. She has been to the emergency room multiple times with her blood alcohol level in the 200s to 300 ranging from 2013 to 2018. She did not have an alcohol level drawn in this hospital stay. 2. Migraines. 3. Bipolar disorder. PAST SURGICAL HISTORY: Tubal ligation, , cauterization of a nose bleed. FAMILY HISTORY: Negative for GI malignancy. HABITS: She states she has not had any alcohol in the last 2 months. She previously drank at least a 12-pack a day. She smokes. No drug use. ALLERGIES: PENICILLIN. MEDICATIONS: Outpatient medications none. Current inpatient medications are magnesium, morphine, phosphorus, pantoprazole. REVIEW OF SYSTEMS: Negative x10 systems reviewed except as stated in history of present illness. PHYSICAL EXAMINATION: VITAL SIGNS: Temperature 98.0, pulse 101, blood pressure 140/89. GENERAL: She is in no acute distress. Alert and oriented x3. HEENT: Eyes have no scleral icterus. Oropharynx is clear without lesions. No cervical or supraclavicular lymphadenopathy. LUNGS: Clear to auscultation bilaterally. HEART: Regular rate and rhythm without murmur. ABDOMEN: Soft. She is very tender in the epigastric region without guarding, less tender in the lower abdomen. Bowel sounds are present. EXTREMITIES: No lower extremity edema. LABORATORY DATA: White blood cell count 9.3, hemoglobin 11.8, platelets 137. INR 0.9. Creatinine 0.68. Bilirubin 0.8, AST 86, ALT 53, alkaline phosphatase 126, albumin 2.9. Sodium 132, potassium 3.4, chloride 106, CO2 14, BUN 4. Viral hepatitis panel was previously negative in 2018. IMPRESSION: 1. Epigastric abdominal pain. She could have a mild chronic pancreatitis with an acute flare-up. Her lipase is now normal at 78. CT scan showed no signs of acute pancreatitis. She could have a peptic ulcer. Given the black stool and very mild anemia and ongoing epigastric pain, I would recommend upper endoscopy to rule out peptic ulcer. 2. Alcoholic hepatitis. Her AST is greater than the ALT and then the 2 to 3 times upper limit of normal range. I suspect she still is actively drinking given the multiple electrolyte abnormalities and hypoalbuminemia, however, she could be still abstinent and it is possible she has more chronic liver disease. She does have mild thrombocytopenia which could be a sign of portal hypertension, but otherwise her INR is normal, and imaging does not show obvious nodularity to her liver. RECOMMENDATIONS: 1. Primary treatment for her is alcohol cessation, incomplete abstinence. 2. Start on a clear liquid diet now. She can advance as she tolerates. 3. I will plan for upper endoscopy on . This will allow time for the COVID test to come back, which is currently pending. She is being ruled out for COVID. There are no obvious exposures that she has had for COVID. 4. Proton pump inhibitor IV. Job ID: [id number]
[2020-01-28] MEDS: D5 0.9% NS w/ 20 mEq KCl 1,000 ML IV SCH (20:46)
[2020-01-29] MEDS: D5 0.9% NS w/ 20 mEq KCl 1,000 ML IV SCH ×5 (00:04→23:31)
[2020-01-29] MEDS: Morphine 2 MG/ML SYRINGE SLOW IVP PRN ×6 (02:00→23:31)
[2020-01-29 05:29] LABS: #Basophils 0.1 thou/uL (0.0-0.2); #Eosinphils 0.1 thou/uL (0.0-0.7); #Lymphocytes 1.8 thou/uL (1.20-3.40); #Monocytes 0.4 thou/uL (0.11-0.59); #Neutrophils 8.5 thou/uL (1.40-6.50); %Basophils 0.9 % (0.0-1.0); %Lymphocytes 16.7 % (21.0-51.0); %Monocytes 3.4 % (0.0-10.0); Hemoglobin 11.3 g/dL (12.0-16.0); Mean Corpuscular HGB CONC 35.2 g/dL (32.0-36.0); Mean Corpuscular Hemoglobin 33.7 pg (27.0-31.0); Mean Corpuscular Volume 95.7 fL (78.0-98.0); Mean Platelet Volume 9.7 fL (7.4-10.4); Platelet Count 135 thou/uL (130-400); RBC Distribution Width 12.3 % (11.5-14.5); Red Blood Cell (RBC) Count 3.35 mill/uL (4.20-5.40); White Blood Cell (WBC) Count 10.9 thou/uL (4.8-10.8)
[2020-01-29 05:55] LABS: ALT (SGPT) 42 U/L (8-55); AST (SGOT) 38 U/L (5-34); Alkaline Phosphatase 119 U/L (40-110); Anion Gap 12 mmol/L (10-20); BUN (Urea Nitrogen) Less than 4 mg/dL (7.0-18.7); Bilirubin, Total 0.7 mg/dL (0.2-1.2); Calc. Creatinine Clearance 121 mL/min (70-130); Calcium 7.7 mg/dL (7.8-10.44); Carbon Dioxide 20 mmol/L (22-29); Chloride 109 mmol/L (98-107); Estimated GFR-MDRD Greater than 90; Globulin 3.2 g/dL (2.4-3.5); Glucose 121 mg/dL (70-105); Magnesium 2.4 mg/dL (1.6-2.6); Potassium 3.5 mmol/L (3.5-5.1); Protein, Total 6.2 g/dL (6.0-8.3); Sodium 137 mmol/L (136-145)
[2020-01-29 06:42] LABS: Phosphorus 2.6 mg/dL (2.3-4.7)
[2020-01-29 07:14] LABS: Lipase 124 U/L (8-78)
[2020-01-29] MEDS: K-Phos Neutral 250 MG TAB PO SCH ×3 (08:14→16:20)
[2020-01-29] MEDS ORDERED: Midazolam HCl 2 mg/2 ml Vial ONE (09:38)
[2020-01-29] MEDS ORDERED: Lidocaine 1% PF 5 ML VIAL ONE (10:39)
[2020-01-29] MEDS ORDERED: PROPOFOL 200 MG/20 ML VIAL ONE (10:39)
--- NOTE | 2020-01-29 10:42 | OP ---
DATE OF PROCEDURE: 01/29/2020 PROCEDURE PERFORMED: Esophagogastroduodenoscopy (diagnostic). INDICATIONS FOR PROCEDURE: Midepigastric abdominal pain, nausea/vomiting, possible melenic stool. DESCRIPTION OF PROCEDURE: After the risks and benefits of the procedure were explained to the patient including risks of bleeding, infection, perforation, reactions to anesthesia, aspiration, and/or pain, informed consent was obtained. The patient was then taken to the endoscopy suite where she was maneuvered into the left lateral decubitus position followed by introduction of deep sedation via propofol and anesthesia support. Once adequate sedation was achieved, the standard gastroscope was introduced into the mouth with intubation of the esophagus, stomach, and the proximal small intestines with the findings listed below. The patient tolerated the procedure well with no immediate perioperative complications. Upon conclusion of the procedure, all equipment was removed from the patient and she was transferred to PACU in satisfactory condition. FINDINGS: Esophagus: Normal-appearing mucosa was seen in the proximal, mid, and distal esophagus. There was no evidence of erosions, ulcerations, mass lesions, or active/recent bleeding. Stomach: Normal-appearing mucosa was seen in the gastric cardia, fundus, body, greater curvature, antrum, and incisura. There was some mild friability to the body/greater curvature with passage of the gastroscope, but there was no evidence of underlying erosions or ulcerations. Otherwise, there was no evidence of active bleeding or mass lesions. Duodenum: Normal-appearing mucosa was seen in both the duodenal bulb and second portion of the duodenum. There was no evidence of erosions, ulcerations, mass lesions, or active/recent bleeding. IMPRESSION: 1. Normal upper endoscopy. 2. No etiology for the patient's abdominal pain was seen during this examination nor was there any evidence of gastrointestinal bleeding. RECOMMENDATIONS: 1. Would continue to trend the patient's hemoglobin and hematocrit and transfuse as necessary to maintain the hemoglobin and hematocrit of 7/21. 2. Continue to monitor clinically for signs of active GI bleeding. 3. Would continue pain control per primary team. 4. Would continue the patient on IV fluids and maintain n.p.o. status in light of probable [id number] pancreatitis episode. 5. Would advance the patient's diet tomorrow to a clear liquid diet and advance as tolerated. 6. If the patient exhibits increased worsening abdominal pain or fever, I would recommend a repeat CT scan for further evaluation. We will continue to follow. Please call with any questions. Job ID: [id number]
[2020-01-29] MEDS: Pantoprazole 40 MG VIAL IVP SCH (11:38)
--- NOTE | 2020-01-29 14:26 | PDOC.HOSPP ---
- Subjective Encounter Date: 01/29/20 Encounter Time: 13:00 Subjective: Patient seen and examined for N/V and Abd pain. s/p EGD. Abd pain same. Nausea improving. No other complaints. No overnight events - Objective Vital Signs & Weight: Vital Signs (12 hours) Temp Pulse Resp BP BP BP Pulse Ox 01/29/20 10:35 98.3 F 98 18 106/58 L 98 01/29/20 07:52 98.8 F 83 18 99/55 L 95 01/29/20 07:43 98.8 F 83 18 99/55 L 95 01/29/20 03:44 98.9 F 90 16 112/74 99 Weight Admit Weight 139 lb 4.8 oz Weight 139 lb 4.8 oz I&O: 01/28/20 01/29/20 01/30/20 06:59 06:59 06:59 Intake Total 1251 Balance 1251 Result Diagrams: 01/29/20 04:51 01/29/20 04:51 Radiology Reviewed by me: Yes (CT abd - reviewed) Hospitalist ROS - Review of Systems Respiratory: denies: cough, dry, shortness of breath, hemoptysis, SOB with excertion, pleuritic pain, sputum, wheezing, other Cardiovascular: denies: chest pain, palpitations, orthopnea, paroxysmal noc. dyspnea, edema, light headedness, other - Medication Medications: Active Medications Generic Name Dose Route Start Last Admin Trade Name Freq PRN Reason Stop Dose Admin Potassium Chloride/Dextrose/Sod Cl 1,000 mls @ 150 mls/hr 01/28/20 09:45 06/09 06:26 D5 0.9% Ns W/ 20 Meq Kcl IV 1,000 mls .[id number] JASON Administration Morphine Sulfate 2 mg 01/27/20 22:57 01/29/20 11:32 Morphine SLOW IVP 2 mg Q4H PRN Administration Severe Pain (7-10) Ondansetron HCl 4 mg 01/27/20 22:34 01/28/20 17:43 Zofran IVP 4 mg Q6H PRN Administration Nausea/Vomiting Phosphorus 250 mg 01/28/20 12:00 01/29/20 12:44 Kphos Neutral PO Not Given TID-WM JASON Sodium Chloride 10 ml 01/28/20 21:00 01/29/20 11:34 Flush - Normal Saline IVF 10 ml Q12HR JASON Administration - Exam General - other findings: Pt in mild distress Neck: supple, no JVD Heart: no gallops, no rubs Respiratory: no wheezes, no rales Gastrointestinal: soft, no guarding, no rigidity, tender to palpation (in epigastric region) Extremities: no cyanosis Neurological: no new deficit Hosp A/P - Plan DVT proph w/SCDs 1. Intractable nausea and vomiting with abdominal discomfort - Prob due to Acute on Chronic Pancreatitis. 2. Dehydration with metabolic acidosis. 3. Lactic acidosis. 4. Abnormal LFTs. 5. Distended gallbladder without gallstones. 6. Multiple electrolyte abnormalities including hyponatremia, hypokalemia, and hypophosphatemia. 7. History of alcohol abuse. 8. Ongoing tobacco abuse. 9. History of cannabis abuse. 10. Penicillin allergy. PLAN: s/p EGD Cont NPO per GI Cont current IVF AM labs Lipase in 150s today IV Morphine for pain control.
[2020-01-29] MEDS: Famotidine 20 MG TAB PO SCH (20:39)
[2020-01-30] MEDS: Morphine 2 MG/ML SYRINGE SLOW IVP PRN (04:31)
[2020-01-30 04:50] LABS: #Basophils 0.1 thou/uL (0.0-0.2); #Eosinphils 0.1 thou/uL (0.0-0.7); #Lymphocytes 1.8 thou/uL (1.20-3.40); #Monocytes 0.6 thou/uL (0.11-0.59); #Neutrophils 7.8 thou/uL (1.40-6.50); %Basophils 0.5 % (0.0-1.0); %Eosinophils 1.2 % (0.0-10.0); %Lymphocytes 17.3 % (21.0-51.0); %Monocytes 5.7 % (0.0-10.0); %Neutrophils 75.2 % (42.0-75.0); Hemoglobin 9.9 g/dL (12.0-16.0); Mean Corpuscular HGB CONC 32.3 g/dL (32.0-36.0); Mean Corpuscular Hemoglobin 31.7 pg (27.0-31.0); Mean Corpuscular Volume 98.3 fL (78.0-98.0); Mean Platelet Volume 8.9 fL (7.4-10.4); Platelet Count 159 thou/uL (130-400); RBC Distribution Width 12.5 % (11.5-14.5); Red Blood Cell (RBC) Count 3.12 mill/uL (4.20-5.40); White Blood Cell (WBC) Count 10.3 thou/uL (4.8-10.8)
[2020-01-30 05:11] LABS: ALT (SGPT) 26 U/L (8-55); AST (SGOT) 22 U/L (5-34); Albumin 2.7 g/dL (3.5-5.0); Alkaline Phosphatase 103 U/L (40-110); Anion Gap 11 mmol/L (10-20); BUN (Urea Nitrogen) Less than 4 mg/dL (7.0-18.7); Bilirubin, Total 0.7 mg/dL (0.2-1.2); Calc. Creatinine Clearance 125 mL/min (70-130); Carbon Dioxide 19 mmol/L (22-29); Chloride 114 mmol/L (98-107); Estimated GFR-MDRD Greater than 90; Glucose 112 mg/dL (70-105); Lipase 54 U/L (8-78); Magnesium 2.2 mg/dL (1.6-2.6); Phosphorus 2.8 mg/dL (2.3-4.7); Potassium 3.9 mmol/L (3.5-5.1); Protein, Total 5.7 g/dL (6.0-8.3); Sodium 140 mmol/L (136-145)
[2020-01-30] MEDS: Famotidine 20 MG TAB PO SCH (08:35)
[2020-01-30] MEDS: K-Phos Neutral 250 MG TAB PO SCH ×2 (08:35→13:03)
[2020-01-30 08:41] VITALS: BP 108/51; TEMP 98.3
[2020-01-30] MEDS: D5 0.9% NS w/ 20 mEq KCl 1,000 ML IV SCH (08:42)
--- NOTE | 2020-01-30 09:37 | PRG ---
DATE OF SERVICE: 01/30/2020 SUBJECTIVE: Ms. Shaffer is feeling a lot better today. Her epigastric pain and nausea have essentially resolved. She got some morphine overnight, but she says this was for a positional pain on the left flank, which has also been improving. She is feeling hungry. She has not had any overt bleeding. She is asking to advance her diet. OBJECTIVE: VITAL SIGNS: Temperature 98.3, pulse 76, blood pressure 108/51, and 97% oxygen saturation on room air. GENERAL: No acute distress. HEART: Regular rate and rhythm. LUNGS: Clear to auscultation bilaterally. ABDOMEN: Nondistended bowel sounds present. Soft. Some mild tenderness to palpation in the left abdomen but the epigastrium is nontender. There is no guarding or rebound tenderness. EXTREMITIES: No peripheral edema. LABORATORY STUDIES: Hemoglobin 9.9, WBC 10.3, platelets 159. Sodium 140, potassium 3.9, BUN less than 4, creatinine 0.64. LFTs have all normalized with total bilirubin 0.7, alkaline phosphatase 103, AST 22, ALT 26, albumin 2.7, lipase 54. ASSESSMENT AND PLAN: 1. Acute on chronic pancreatitis, mild episode, clinically improved. 2. LFT elevation, mild, now normalized. Particularly given the patient's negative EGD yesterday, it appears this does represent a flare of likely chronic pancreatitis. She is now doing clinically well. We will advance her diet to clear liquids this morning. I think if she is continuing to do well with this, this afternoon, her diet can be further advanced. I asked her that if her pain or nausea starts flaring up, she should back off the diet. Otherwise, continue current supportive care. Hopefully, we will see complete resolution and dietary advancement within the next day or so. 3. Please call back anytime with questions or concerns. Job ID: [id number]
--- NOTE | 2020-01-31 02:29 | DIS ---
DATE OF ADMISSION: 01/27/2020 DATE OF DISCHARGE: 01/30/2020 PRIMARY CARE PROVIDER: Dr. Anupama Dutton. DISCHARGE DIAGNOSES: 1. Acute on chronic pancreatitis. 2. Abdominal pain due to #1. 3. Hyponatremia. 4. Hypokalemia. 5. Abnormal liver function tests. 6. Hypophosphatemia. CONSULTATIONS DURING THIS HOSPITALIZATION: Gastroenterology, Dr. Valentin. Post-acute care followup: With primary care provider in 3 days' time. ACTIVITY: As tolerated. DIET: [place]. DISCHARGE DESTINATION: Home. TIME SPENT: Total amount of time spent coordinating this discharge is 32 minutes. DISCHARGE MEDICATIONS: None. HOSPITAL COURSE: Ms. Shaffer is a pleasant 34-year-old lady who was admitted to [facility] on January 27, 2020, for acute on chronic pancreatitis. She was seen by Gastroenterology Service. She was treated with pain medications. She had EGD on January 28, which was unremarkable. Her symptoms resolved. On the day of discharge, she is tolerating diet. She had COVID-19 PCR test, which was negative. She also had electrolyte abnormalities which were corrected. She also had abnormal liver function tests, which normalized by the day of discharge. She is being discharged home in a stable condition. Many thanks for allowing me to participate in your patient's care. Please feel free to contact me with any questions or concerns. Job ID: [id number]
== END 2020-01-30 14:04 | disposition home or self-care (01) | DRG 439 ==
LOC: ERS 18:54 → 2NO 23:08 → OBSVTOIN 23:08 → 2SW 01-28 02:58 → ONC 01-28 17:32
PROVIDERS: ADMIT Internal Medicine; ATTEND Internal Medicine
PROC: 0DJ08ZZ Inspection of Upper Intestinal Tract, Via Natural or Artificial Opening Endoscopic (ICD-10-PCS; principal; 2020-01-29)
DX: K85.90 Acute pancreatitis without necrosis or infection, unspecified (principal); E87.2 Acidosis; E87.1 Hypo-osmolality and hyponatremia; Z20.828 Contact with and (suspected) exposure to other viral communicable diseases; E86.0 Dehydration; F10.11 Alcohol abuse, in remission; G43.909 Migraine, unspecified, not intractable, without status migrainosus; F17.210 Nicotine dependence, cigarettes, uncomplicated; F31.9 Bipolar disorder, unspecified; E87.6 Hypokalemia; K70.10 Alcoholic hepatitis without ascites; D69.6 Thrombocytopenia, unspecified; E83.39 Other disorders of phosphorus metabolism; K82.8 Other specified diseases of gallbladder; K86.1 Other chronic pancreatitis; F12.11 Cannabis abuse, in remission; Z98.51 Tubal ligation status; Z88.0 Allergy status to penicillin; Z71.41 Alcohol abuse counseling and surveillance of alcoholic
CPT/HCPCS: 36415; 76705; 80053; 83605; 83690; 83735; 84100; 85025; 87635; 96361; 96374; 96375; 96376; C9113; G0378; J2001; J2250; J2270; J2405; J2704; J3475; J3480; J7050; S0028; U0003

== ENCOUNTER 2024-05-24 23:08 | Emergency (ER) | payer SELFPAY ==
[2024-05-24] MEDS ORDERED: Boostrix 0.5 ML (Tdap) VIAL (>/=7 yrs of age) ONE (23:31)
[2024-05-24] MEDS ORDERED: Ketorolac Tromethamine 30 MG (1 mL) VIAL ONE (23:39)
[2024-05-25] MEDS ORDERED: Silver Sulfadiazine 50 GM TUBE ONE (01:06)
== END 2024-05-25 02:06 | disposition home or self-care (01) ==
LOC: ERS 23:08
DX: T25.222A Burn of second degree of left foot, initial encounter (principal); T25.221A Burn of second degree of right foot, initial encounter; F17.210 Nicotine dependence, cigarettes, uncomplicated; F17.290 Nicotine dependence, other tobacco product, uncomplicated; X12.XXXA Contact with other hot fluids, initial encounter
CPT/HCPCS: 90471; 90715; 96374; J1885